=== PATIENT | male | born 1990 | race Caucasian/White ===

== ENCOUNTER 2020-03-20 19:41 | Emergency (ER) | payer OTHER, SELFPAY ==
[~2020-03-20] VITALS: Ht 180.3 cm; Wt 67.8 kg
[2020-03-20 20:40] LABS: BASO % 0.4 % (0.0-1.0); EOS # 0.1 10^3/uL (0.0-0.5); EOS % 0.6 % (0.0-3.0); HEMATOCRIT 41.5 % (42.0-52.0); HEMOGLOBIN 13.8 g/dl (13.5-17.5); LYMPH # 2.5 10^3/uL (1.5-5.0); LYMPH % 31.4 % (24.0-44.0); MEAN CORPUSCULAR HEMOGLOBIN 27.5 pg (27.0-33.0); MEAN CORPUSCULAR HGB CONC 33.3 g/dl (32.0-36.5); MEAN CORPUSCULAR VOLUME 82.7 fl (80.0-96.0); MONO # 0.6 10^3/uL (0.0-0.8); MONO % 7.9 % (0.0-5.0); NEUTROPHILS # 4.8 10^3/uL (1.5-8.5); NEUTROPHILS % 59.5 % (36.0-66.0); PLATELET COUNT, AUTOMATED 300 10^3/uL (150-450); RED BLOOD COUNT 5.02 10^6/uL (4.30-6.10); WHITE BLOOD COUNT 8.1 10^3/uL (4.0-10.0)
[2020-03-20 21:13] LABS: BLOOD UREA NITROGEN 8 MG/DL (7-18); CALCIUM LEVEL 9.6 MG/DL (8.5-10.1); CARBON DIOXIDE LEVEL 30 MEQ/L (21-32); CHLORIDE LEVEL 104 MEQ/L (98-107); CK-MB VALUE MASS < 1.0 NG/ML (<3.6); CPK CREATINE PHOSPHOKINASE 68 U/L (39-308); CREATININE FOR GFR 1.16 MG/DL (0.70-1.30); GLOMERULAR FILTRATION RATE > 60.0 (>60); GLUCOSE, FASTING 100 MG/DL (70-100); MB/CK RELATIVE INDEX 1.47 (< OR =4); POTASSIUM SERUM 4.5 MEQ/L (3.5-5.1); SODIUM LEVEL 138 MEQ/L (136-145); THYROXINE (T4) 13.7 UG/DL (4.5-12.0); TROPONIN I < 0.02 NG/ML (< 0.10)
--- NOTE | 2020-03-20 21:20 | REPVR ---
PROCEDURE INFORMATION: Exam: XR Chest, 1 View Exam date and time: 03/20/2020 8:45 PM Age: 29 years old Clinical indication: Chest pain TECHNIQUE: Imaging protocol: XR of the chest Views: 1 view. COMPARISON: CR Chest, 1 view 03/17/2015 4:10 AM FINDINGS: Lungs: Unremarkable. No consolidation. No pulmonary edema. Pleural space: Unremarkable. No pleural effusion or pneumothorax is identified. Heart/Mediastinum: Unremarkable. No cardiomegaly. Bones/joints: Unremarkable. IMPRESSION: No acute findings. Electronically signed by: Shmuel Luke On 03/20/2020 21:19:58 PM
[2020-03-20 22:10] VITALS: BP 129/82
--- NOTE | 2020-03-21 08:34 | ECGEPIP ---
[facility] - ED Test Date: 2020-03-20 Pat Name: CHARLES BAUTISTA Department: Room: - Gender: Male Vet Tech: chapis : 1990 Requested By: Josué Velarde Order Number: [id number] Reading MD: Sarai Whitaker Measurements Intervals [place] Rate: 95 P: 85 AK: 179 QRS: -55 QRSD: 97 T: 61 QT: 325 QTc: 409 Interpretive Statements SINUS RHYTHM INCOMPLETE RIGHT BUNDLE BRANCH BLOCK LEFT ANTERIOR FASCICULAR BLOCK Electronically Signed on 03-21-2020 8:34:01 EDT by Sarai Whitaker
== END 2020-03-20 22:13 | disposition home or self-care (01) ==
LOC: M ED 19:41
DX: R07.9 Chest pain, unspecified (principal); F11.10 Opioid abuse, uncomplicated; I45.19 Other right bundle-branch block; I44.4 Left anterior fascicular block

== ENCOUNTER → 2020-12-25 | Outpatient (CLI) | payer OTHER | LOC: M OUTALCOH 07:54 | PROVIDERS: ATTEND Psychiatry & Neurology Psychiatry | DX: F11.20 Opioid dependence, uncomplicated (principal) ==

== ENCOUNTER 2021-01-11 13:00 | Outpatient (RCR) | payer OTHER | END 2021-01-12 | LOC: M OUTALCOH 13:00 | PROVIDERS: ATTEND Psychiatry & Neurology Psychiatry | DX: F11.20 Opioid dependence, uncomplicated (principal); F13.20 Sedative, hypnotic or anxiolytic dependence, uncomplicated ==

== ENCOUNTER → 2021-02-12 | Outpatient (RCR) | payer OTHER | LOC: M OUTALCOH 01-14 13:00 | PROVIDERS: ATTEND Psychiatry & Neurology Psychiatry | DX: F11.20 Opioid dependence, uncomplicated (principal); F15.10 Other stimulant abuse, uncomplicated; F17.200 Nicotine dependence, unspecified, uncomplicated ==

== ENCOUNTER → 2021-03-14 | Outpatient (RCR) | payer OTHER | LOC: M OUTALCOH 02-13 10:02 | PROVIDERS: ATTEND Psychiatry & Neurology Psychiatry | DX: F11.20 Opioid dependence, uncomplicated (principal); F15.10 Other stimulant abuse, uncomplicated; F17.200 Nicotine dependence, unspecified, uncomplicated; F10.10 Alcohol abuse, uncomplicated ==

== ENCOUNTER 2021-04-11 09:00 | Outpatient (RCR) | payer OTHER | END 2021-04-14 | LOC: M OUTALCOH 09:00 | PROVIDERS: ATTEND Psychiatry & Neurology Psychiatry | DX: F11.20 Opioid dependence, uncomplicated (principal); F15.10 Other stimulant abuse, uncomplicated; F17.200 Nicotine dependence, unspecified, uncomplicated; F10.10 Alcohol abuse, uncomplicated ==

== ENCOUNTER 2021-05-06 14:00 | Outpatient (RCR) | payer OTHER | END 2021-05-14 | LOC: M OUTALCOH 14:00 | PROVIDERS: ATTEND Psychiatry & Neurology Psychiatry | DX: F11.20 Opioid dependence, uncomplicated (principal); F15.10 Other stimulant abuse, uncomplicated; F17.200 Nicotine dependence, unspecified, uncomplicated; F10.10 Alcohol abuse, uncomplicated ==

== ENCOUNTER 2021-06-10 14:00 | Outpatient (RCR) | payer OTHER | END 2021-06-14 | LOC: M OUTALCOH 14:00 | PROVIDERS: ATTEND Psychiatry & Neurology Psychiatry | DX: F11.20 Opioid dependence, uncomplicated (principal); F15.10 Other stimulant abuse, uncomplicated; F17.200 Nicotine dependence, unspecified, uncomplicated; F10.10 Alcohol abuse, uncomplicated ==

== ENCOUNTER → 2021-07-15 | Outpatient (RCR) | payer OTHER | LOC: M OUTALCOH 06-17 16:04 | PROVIDERS: ATTEND Psychiatry & Neurology Psychiatry | DX: F11.20 Opioid dependence, uncomplicated (principal); F15.10 Other stimulant abuse, uncomplicated; F17.200 Nicotine dependence, unspecified, uncomplicated; F10.10 Alcohol abuse, uncomplicated ==

== ENCOUNTER → 2021-08-12 | Outpatient (RCR) | payer OTHER | LOC: M OUTALCOH 07-17 15:11 | PROVIDERS: ATTEND Psychiatry & Neurology Psychiatry | DX: F11.20 Opioid dependence, uncomplicated (principal); F15.10 Other stimulant abuse, uncomplicated; F17.200 Nicotine dependence, unspecified, uncomplicated; F10.10 Alcohol abuse, uncomplicated ==

== ENCOUNTER 2021-09-09 14:45 | Outpatient (RCR) | payer OTHER | END 2021-09-12 | LOC: M OUTALCOH 14:45 | PROVIDERS: ATTEND Psychiatry & Neurology Psychiatry | DX: F11.21 Opioid dependence, in remission (principal); F15.21 Other stimulant dependence, in remission; F17.200 Nicotine dependence, unspecified, uncomplicated; F10.11 Alcohol abuse, in remission ==

== ENCOUNTER 2021-10-03 15:00 | Outpatient (RCR) | payer OTHER | END 2021-10-12 | LOC: M OUTALCOH 15:00 | PROVIDERS: ATTEND Psychiatry & Neurology Psychiatry | DX: F11.21 Opioid dependence, in remission (principal); F15.21 Other stimulant dependence, in remission; F17.200 Nicotine dependence, unspecified, uncomplicated; F10.11 Alcohol abuse, in remission ==

== ENCOUNTER 2021-10-28 14:40 | Outpatient (RCR) | payer OTHER | END 2021-11-12 | LOC: M OUTALCOH 14:40 | PROVIDERS: ATTEND Psychiatry & Neurology Psychiatry | DX: F11.21 Opioid dependence, in remission (principal); F15.21 Other stimulant dependence, in remission; F17.201 Nicotine dependence, unspecified, in remission; F10.11 Alcohol abuse, in remission ==

== ENCOUNTER 2021-12-02 14:00 | Outpatient (RCR) | payer OTHER | END 2021-12-12 | LOC: M OUTALCOH 14:00 | PROVIDERS: ATTEND Psychiatry & Neurology Psychiatry | DX: F11.21 Opioid dependence, in remission (principal); F15.21 Other stimulant dependence, in remission; F17.201 Nicotine dependence, unspecified, in remission; F10.11 Alcohol abuse, in remission ==

== ENCOUNTER 2022-01-01 14:00 | Outpatient (RCR) | payer OTHER | END 2022-01-12 | LOC: M OUTALCOH 14:00 | PROVIDERS: ATTEND Psychiatry & Neurology Psychiatry | DX: F11.21 Opioid dependence, in remission (principal); F15.21 Other stimulant dependence, in remission; F17.201 Nicotine dependence, unspecified, in remission; F10.11 Alcohol abuse, in remission ==

== ENCOUNTER 2022-01-13 15:56 | Outpatient (RCR) | payer OTHER | END 2022-02-12 | LOC: M OUTALCOH 15:56 | PROVIDERS: ATTEND Psychiatry & Neurology Psychiatry | DX: F11.21 Opioid dependence, in remission (principal); F15.21 Other stimulant dependence, in remission; F17.201 Nicotine dependence, unspecified, in remission; F10.11 Alcohol abuse, in remission ==

== ENCOUNTER 2022-02-27 14:26 | Outpatient (RCR) | payer OTHER | END 2022-03-14 | LOC: M OUTALCOH 14:26 | PROVIDERS: ATTEND Psychiatry & Neurology Psychiatry | DX: F11.21 Opioid dependence, in remission (principal); F15.21 Other stimulant dependence, in remission; F17.201 Nicotine dependence, unspecified, in remission; F10.11 Alcohol abuse, in remission ==

== ENCOUNTER 2022-05-01 15:00 | Outpatient (RCR) | payer OTHER | END 2022-05-14 | LOC: M OUTALCOH 15:00 | PROVIDERS: ATTEND Psychiatry & Neurology Psychiatry | DX: F11.21 Opioid dependence, in remission (principal); F15.21 Other stimulant dependence, in remission; F17.201 Nicotine dependence, unspecified, in remission; F10.11 Alcohol abuse, in remission ==

== ENCOUNTER 2022-09-19 15:40 | Emergency (ER) | payer OTHER ==
[~2022-09-19] VITALS: Ht 180.3 cm; Wt 70.5 kg
[2022-09-19] MEDS ORDERED: BUPR1FIL35 (15:50)
[2022-09-19 17:18] LABS: BASO % 0.5 % (0.0-1.0); EOS % 0.4 % (0.0-3.0); HEMATOCRIT 40.4 % (42.0-52.0); HEMOGLOBIN 13.4 g/dl (13.5-17.5); LYMPH # 1.9 10^3/uL (1.5-5.0); LYMPH % 22.7 % (24.0-44.0); MEAN CORPUSCULAR HEMOGLOBIN 29.4 pg (27.0-33.0); MEAN CORPUSCULAR HGB CONC 33.2 g/dl (32.0-36.5); MEAN CORPUSCULAR VOLUME 88.6 fl (80.0-96.0); MONO # 0.6 10^3/uL (0.0-0.8); NEUTROPHILS # 5.9 10^3/uL (1.5-8.5); PLATELET COUNT, AUTOMATED 264 10^3/uL (150-450); RED BLOOD COUNT 4.56 10^6/uL (4.30-6.10); WHITE BLOOD COUNT 8.5 10^3/uL (4.0-10.0)
[2022-09-19 17:42] LABS: LIPASE 37 U/L (12-53)
[2022-09-19 17:44] LABS: ALBUMIN 4.2 G/DL (3.2-5.2); ALKALINE PHOSPHATASE 63 U/L (46-116); ALT/SGPT 18 U/L (7.0-40); AST/SGOT 34 U/L (<34); BILIRUBIN,DIRECT 0.1 MG/DL (<0.4); BILIRUBIN,TOTAL 0.5 MG/DL (0.3-1.2); BLOOD UREA NITROGEN 20 MG/DL (9-23); CALCIUM LEVEL 8.8 MG/DL (8.5-10.1); CARBON DIOXIDE LEVEL 28 MMOL/L (20-31); CHLORIDE LEVEL 104 MMOL/L (98-107); CREATININE FOR GFR 1.25 MG/DL (0.70-1.30); GLOMERULAR FILTRATION RATE > 60.0 (>60); GLUCOSE, FASTING 85 MG/DL (60-100); POTASSIUM SERUM 4.6 MMOL/L (3.5-5.1); SODIUM LEVEL 138 MMOL/L (136-145); TOTAL PROTEIN 6.7 G/DL (5.7-8.2)
[2022-09-19] MEDS ORDERED: PROC1SP PR (17:59)
[2022-09-19 18:08] VITALS: BP 128/74
== END 2022-09-19 18:12 | disposition home or self-care (01) ==
LOC: M ED 15:40
DX: K64.4 Residual hemorrhoidal skin tags (principal); F19.10 Other psychoactive substance abuse, uncomplicated; Z88.2 Allergy status to sulfonamides

== ENCOUNTER 2022-12-26 08:43 | Day surgery (SDC) | payer OTHER ==
[~2022-12-26] VITALS: Ht 180.3 cm; Wt 68.0 kg
[~2022-12-26 08:43] MED LIST: BUPR1FIL35 SL; EAR6.5DR10 OU; NS 1,000 ML IV ONE; PROC1SP PR
[2022-12-26] MEDS ORDERED: propofoL 200 MG/20 ML VIAL As Ordered ONE (10:19)
[2022-12-26] MEDS ORDERED: LIDOCAINE 2% 100MG/5ML SDV (FOR ANES.) As Ordered ONE (10:19)
[2022-12-26 10:55] VITALS: BP 107/64; O2SAT 100
== END 2022-12-26 11:04 | disposition home or self-care (01) ==
LOC: M OPP 08:43
PROVIDERS: ATTEND Internal Medicine Gastroenterology
DX: K92.1 Melena (principal); K64.8 Other hemorrhoids; K51.20 Ulcerative (chronic) proctitis without complications; K63.89 Other specified diseases of intestine; Z88.2 Allergy status to sulfonamides

== ENCOUNTER → 2023-03-26 | Outpatient (REF) | payer OTHER ==
[~2023-03-26] MED LIST changes: -NS 1,000 ML IV ONE
[2023-03-26 13:13] LABS: BASO # 0.1 10^3/uL (0.0-0.2); EOS # 0.2 10^3/uL (0.0-0.5); EOS % 2.6 % (0.0-3.0); HEMATOCRIT 44.9 % (42.0-52.0); HEMOGLOBIN 14.8 g/dl (13.5-17.5); LYMPH # 2.6 10^3/uL (1.5-5.0); LYMPH % 38.1 % (24.0-44.0); MEAN CORPUSCULAR VOLUME 87.9 fl (80.0-96.0); MONO # 0.5 10^3/uL (0.0-0.8); MONO % 7.9 % (2.0-8.0); NEUTROPHILS # 3.4 10^3/uL (1.5-8.5); NEUTROPHILS % 50.1 % (36.0-66.0); PLATELET COUNT, AUTOMATED 299 10^3/uL (150-450); RED BLOOD COUNT 5.11 10^6/uL (4.30-6.10); WHITE BLOOD COUNT 6.9 10^3/uL (4.0-10.0)
[2023-03-26 13:29] LABS: HEMOGLOBIN A1c 4.7 % (4.0-6.0)
[2023-03-26 13:37] LABS: ALBUMIN 4.3 G/DL (3.2-5.2); ALKALINE PHOSPHATASE 71 U/L (46-116); ALT/SGPT 21 U/L (7.0-40); AST/SGOT 15 U/L (<34); BILIRUBIN,TOTAL 0.2 MG/DL (0.3-1.2); BLOOD UREA NITROGEN 21 MG/DL (9-23); CALCIUM LEVEL 9.8 MG/DL (8.5-10.1); CARBON DIOXIDE LEVEL 30 MMOL/L (20-31); CHLORIDE LEVEL 104 MMOL/L (98-107); CREATININE FOR GFR 1.09 MG/DL (0.70-1.30); GLOMERULAR FILTRATION RATE > 60.0 (>60); GLUCOSE, FASTING 72 MG/DL (60-100); POTASSIUM SERUM 4.7 MMOL/L (3.5-5.1); SODIUM LEVEL 139 MMOL/L (136-145); TOTAL PROTEIN 7.2 G/DL (5.7-8.2)
[2023-03-26 13:40] LABS: THYROID STIMULATING HORMONE 3.077 uIU/ML (0.55-4.78)
[2023-03-26 13:41] LABS: FREE T4 1.15 NG/DL (0.89-1.76)
== END ==
LOC: M LAB REF 11:34
PROVIDERS: ATTEND Family Medicine Addiction Medicine
DX: R63.4 Abnormal weight loss (principal)

== ENCOUNTER → 2024-05-03 | Outpatient (CLI) | payer OTHER ==
[2024-05-03 13:32] LABS: BASO # 0.1 10^3/uL (0.0-0.2); BASO % 0.8 % (0.0-1.0); EOS # 1.5 10^3/uL (0.0-0.5); EOS % 17.5 % (0.0-3.0); HEMATOCRIT 35.9 % (42.0-52.0); LYMPH # 1.6 10^3/uL (1.5-5.0); LYMPH % 18.9 % (24.0-44.0); MEAN CORPUSCULAR HEMOGLOBIN 28.6 pg (27.0-33.0); MEAN CORPUSCULAR HGB CONC 33.4 g/dl (32.0-36.5); MEAN CORPUSCULAR VOLUME 85.7 fl (80.0-96.0); MONO # 0.8 10^3/uL (0.0-0.8); NEUTROPHILS # 4.5 10^3/uL (1.5-8.5); NEUTROPHILS % 53.4 % (36.0-66.0); PLATELET COUNT, AUTOMATED 373 10^3/uL (150-450); RED BLOOD COUNT 4.19 10^6/uL (4.30-6.10); WHITE BLOOD COUNT 8.5 10^3/uL (4.0-10.0)
[2024-05-03 13:39] LABS: ERYTHROCYTE SEDIMENTATION RATE 39 mm/hr (0-15)
[2024-05-03 13:50] LABS: ALBUMIN 2.7 G/DL (3.2-5.2); ALKALINE PHOSPHATASE 61 U/L (40-129); ALT/SGPT 14 U/L (7.0-40); AST/SGOT 13 U/L (<34); BILIRUBIN,TOTAL 0.2 MG/DL (0.3-1.2); BLOOD UREA NITROGEN 11 MG/DL (9-23); CALCIUM LEVEL 8.8 MG/DL (8.5-10.1); CARBON DIOXIDE LEVEL 32 MMOL/L (20-31); CHLORIDE LEVEL 103 MMOL/L (98-107); CREATININE FOR GFR 1.22 MG/DL (0.70-1.30); GLOMERULAR FILTRATION RATE > 60.0 (>60); GLUCOSE, FASTING 124 MG/DL (60-100); POTASSIUM SERUM 4.5 MMOL/L (3.5-5.1); SODIUM LEVEL 139 MMOL/L (136-145)
[2024-05-03 14:10] LABS: HEPATITIS B SURFACE ANTIGEN NEGATIVE (NEGATIVE)
[2024-05-05 15:47] LABS: QuantiFERON-TB Gold Plus NEGATIVE (NEGATIVE)
== END ==
LOC: M LAB 12:46
PROVIDERS: ATTEND Internal Medicine Gastroenterology
DX: K51.211 Ulcerative (chronic) proctitis with rectal bleeding (principal)

== ENCOUNTER → 2024-05-04 | Outpatient (REF) | payer OTHER | LOC: M LAB REF 15:25 | PROVIDERS: ATTEND Internal Medicine Gastroenterology | DX: R19.7 Diarrhea, unspecified (principal); A04.72 Enterocolitis due to Clostridium difficile, not specified as recurrent ==

== ENCOUNTER → 2024-10-07 | Outpatient (REF) | payer OTHER ==
[2024-10-07 13:43] LABS: CLOSTRIDIUM DIFFICILE PCR NEGATIVE (NEGATIVE)
== END ==
LOC: M LAB REF 12:35
PROVIDERS: ATTEND Internal Medicine Gastroenterology
DX: A04.72 Enterocolitis due to Clostridium difficile, not specified as recurrent (principal)

== ENCOUNTER → 2025-05-01 | Outpatient (REF) | payer OTHER ==
[~2025-05-01] MED LIST changes: +CVS6.5DR3 OU; -EAR6.5DR10 OU; +MESA1000 PR
[2025-05-01 16:48] LABS: BASO # 0.1 10^3/uL (0.0-0.2); BASO % 1.0 % (0.0-1.0); EOS # 0.1 10^3/uL (0.0-0.5); EOS % 1.9 % (0.0-3.0); LYMPH # 1.6 10^3/uL (1.5-5.0); LYMPH % 27.6 % (24.0-44.0); MONO # 0.6 10^3/uL (0.0-0.8); MONO % 10.5 % (2.0-8.0); NEUTROPHILS # 3.5 10^3/uL (1.5-8.5); NEUTROPHILS % 58.8 % (36.0-66.0); PLATELET COUNT, AUTOMATED 512 10^3/uL (150-450)
[2025-05-01 16:50] LABS: IRON (FE) 9 UG/DL (65-175)
[2025-05-01 16:55] LABS: VITAMIN B12 LEVEL 439 PG/ML (211-911)
== END ==
LOC: M LAB REF 16:18
PROVIDERS: ATTEND Family Medicine Addiction Medicine
DX: Z11.59 Encounter for screening for other viral diseases (principal); D64.9 Anemia, unspecified

== ENCOUNTER → 2025-05-29 | Outpatient (REF) | payer OTHER ==
[2025-05-29 17:06] LABS: BASO # 0.0 10^3/uL (0.0-0.2); BASO % 0.7 % (0.0-1.0); EOS # 0.1 10^3/uL (0.0-0.5); EOS % 0.8 % (0.0-3.0); LYMPH # 1.3 10^3/uL (1.5-5.0); LYMPH % 21.3 % (24.0-44.0); MONO # 0.5 10^3/uL (0.0-0.8); MONO % 8.6 % (2.0-8.0); NEUTROPHILS # 4.1 10^3/uL (1.5-8.5); NEUTROPHILS % 68.3 % (36.0-66.0); PLATELET COUNT, AUTOMATED 335 10^3/uL (150-450)
[2025-05-29 17:11] LABS: IRON (FE) 44.0 UG/DL (65-175)
[2025-05-29 17:14] LABS: VITAMIN B12 LEVEL 677.0 PG/ML (211-911)
== END ==
LOC: M LAB REF 16:18
PROVIDERS: ATTEND Family Medicine Addiction Medicine
DX: D64.9 Anemia, unspecified (principal)